=== PATIENT | female | born 1965 ===

== ENCOUNTER 2018-06-25 06:03 | Day surgery (SDC) | payer OTHER ==
[~2018-06-25] VITALS: Ht 170.2 cm; Wt 71.3 kg
[2018-06-25 06:30] VITALS: BP 112/50; PULSE 50; TEMP 97.5
[2018-06-25] MEDS ORDERED: VIAGRA 25MG TAB25 MG PO (06:30)
[2018-06-25 07:55] VITALS: BP 88/45; PULSE 54; TEMP 97.1
[2018-06-25 08:10] VITALS: BP 94/70; PULSE 44
[2018-06-25 08:25] VITALS: BP 102/89; PULSE 67
== END 2018-06-25 08:55 | disposition home or self-care (01) ==
LOC: SDCO 06:03
DX: Z12.11 Encounter for screening for malignant neoplasm of colon (principal); I27.20 Pulmonary hypertension, unspecified; K58.9 Irritable bowel syndrome, unspecified; G47.33 Obstructive sleep apnea (adult) (pediatric); Z90.710 Acquired absence of both cervix and uterus; Z83.79 Family history of other diseases of the digestive system; Z82.49 Family history of ischemic heart disease and other diseases of the circulatory system
CPT/HCPCS: J2704; J7030

== ENCOUNTER → 2018-06-28 | Outpatient (CLI) | payer OTHER ==
[~2018-06-28] MED LIST: VIAGRA 25MG TAB25 MG PO
== END ==
LOC: COL.VAS 09:00
DX: I27.20 Pulmonary hypertension, unspecified (principal); I51.7 Cardiomegaly